=== PATIENT | female | born 1965 | race Caucasian/White ===

== ENCOUNTER → 2017-08-01 | Outpatient (CLI) | payer OTHER ==
[2005-03-22 08:37] VITALS: TEMP 97.6
== END ==
LOC: COL.RAD 07:58
DX: K76.0 Fatty (change of) liver, not elsewhere classified (principal)

== ENCOUNTER 2017-08-22 09:15 | Day surgery (SDC) | payer OTHER ==
[~2017-08-22] VITALS: Ht 154.9 cm; Wt 73.8 kg
[2017-08-22] MEDS ORDERED: SYNTHROID0.112 MG/T PO (09:33)
[2017-08-22] MEDS ORDERED: LISINOPRIL (09:34)
[2017-08-22] MEDS ORDERED: CORGARD80 MG PO (09:34)
[2017-08-22] MEDS ORDERED: LISINOPRIL PO (09:35)
[2017-08-22] MEDS ORDERED: GLUCOPHAGE500 MG/TAB PO (09:35)
[2017-08-22] MEDS ORDERED: REQUIP2 MG PO (09:36)
[2017-08-22] MEDS ORDERED: KLONOPIN2 MG PO (09:36)
[2017-08-22] MEDS ORDERED: PROTONIX 40MG T40 MG PO (09:37)
[2017-08-22] MEDS ORDERED: ZOFRAN 4MG T4 MG/TAB PO (09:37)
[2017-08-22 09:50] VITALS: BP 133/76; PULSE 70; TEMP 98.3
[2017-08-22 10:45] VITALS: BP 106/69; PULSE 71; TEMP 98
[2017-08-22 11:00] VITALS: BP 117/61; PULSE 71
[2017-08-22 11:15] VITALS: BP 98/64; PULSE 64
[2017-08-22] MEDS ORDERED: BENEFIBER (11:24)
[2017-08-22 11:30] VITALS: BP 106/62; PULSE 62
== END 2017-08-22 11:30 | disposition home or self-care (01) ==
LOC: SDCO 09:15
DX: K21.9 Gastro-esophageal reflux disease without esophagitis (principal); K59.00 Constipation, unspecified; K76.0 Fatty (change of) liver, not elsewhere classified; K58.9 Irritable bowel syndrome, unspecified; E11.9 Type 2 diabetes mellitus without complications; E03.9 Hypothyroidism, unspecified; Z79.84 Long term (current) use of oral hypoglycemic drugs; Z90.710 Acquired absence of both cervix and uterus; Z80.0 Family history of malignant neoplasm of digestive organs
CPT/HCPCS: OP; J2704; J3010; J7030

== ENCOUNTER → 2017-09-04 | Outpatient (CLI) | payer OTHER ==
[~2017-09-04] MED LIST: BENEFIBER; CORGARD80 MG PO; GLUCOPHAGE500 MG/TAB PO; KLONOPIN2 MG PO; LISINOPRIL; LISINOPRIL PO; PROTONIX 40MG T40 MG PO; REQUIP2 MG PO; SYNTHROID0.112 MG/T PO; ZOFRAN 4MG T4 MG/TAB PO
== END ==
LOC: SUN.DIA
DX: E11.9 Type 2 diabetes mellitus without complications (principal); I10 Essential (primary) hypertension; E03.9 Hypothyroidism, unspecified; Z68.29 Body mass index [BMI] 29.0-29.9, adult; Z71.3 Dietary counseling and surveillance
CPT/HCPCS: G0108

== ENCOUNTER → 2017-10-01 | Outpatient (CLI) | payer OTHER | LOC: SUN.DIA 09-30 15:45 | DX: E11.9 Type 2 diabetes mellitus without complications (principal); I10 Essential (primary) hypertension; E03.9 Hypothyroidism, unspecified; Z68.29 Body mass index [BMI] 29.0-29.9, adult; Z71.3 Dietary counseling and surveillance | CPT/HCPCS: G0108 ==

== ENCOUNTER → 2018-11-02 | Outpatient (CLI) | payer OTHER | LOC: MC.RAD 07:55 | DX: Z12.31 Encounter for screening mammogram for malignant neoplasm of breast (principal) ==

== ENCOUNTER → 2020-09-21 | Outpatient (CLI) | payer OTHER | LOC: MC.RAD 16:09 | DX: Z12.31 Encounter for screening mammogram for malignant neoplasm of breast (principal) ==

== ENCOUNTER → 2021-01-18 | Outpatient (CLI) | payer OTHER | LOC: COL.RAD 09:59 | DX: K76.0 Fatty (change of) liver, not elsewhere classified (principal) ==

== ENCOUNTER → 2021-11-22 | Outpatient (CLI) | payer OTHER | LOC: MC.RAD 10-03 14:15 | DX: Z12.31 Encounter for screening mammogram for malignant neoplasm of breast (principal) ==